=== PATIENT | female | born 1970 | race Caucasian/White ===

== ENCOUNTER 2017-11-17 11:52 | Emergency (ER) | END 2017-11-17 12:28 | disposition home or self-care (01) ==

== ENCOUNTER 2019-01-13 15:12 | Emergency (ER) | payer MEDICAID ==
[~2019-01-13] VITALS: Ht 154.9 cm; Wt 65.0 kg
[~2019-01-13 15:12] MED LIST: ALBU8.5H8 INH; BENZ-6 PO; D-ME473S2 PO; PRED20TA PO
[2019-01-13 15:19] VITALS: BP 141/88; PULSE 68; RESP 18; Ht 154.9 cm; Wt 65.0 kg
[2019-01-13] MEDS ORDERED: KETOROLAC 30 MG INJ IM STA (16:05)
[2019-01-13] MEDS ORDERED: LIDOCAINE 1%/EPI 30 ML INJ INJ STA (16:05)
[2019-01-13] MEDS ORDERED: DIPHTH/TET/ACEL PERTUSS (ADULT) 0.5 ML VIAL IM* ONE (16:30)
[2019-01-13] MEDS ORDERED: CEPH-443 PO (17:31)
[2019-01-13] MEDS ORDERED: ACET325T33 PO (17:31)
--- NOTE | 2019-01-13 17:44 | ERD ---
ER Documentation Chief Complaint Chief Complaint HEAD LAC S/P SLIP AND FALL WHILE CLEANING , NO K/O HPI 48-year-old female slipped and fell while cleaning last night. Patient denies any LOC. Patient is coming in for laceration on the right side of the occipital lobe of her scalp that is still bleeding. Laceration appears to be about 4 cm and is superficial. Patient states the pain is a 4 out of 10 and does not know when her last tetanus vaccination was. Patient denies any allergies to medication. Patient denies headache confusion blurred vision. Patient states she has no medical history and states that she is not allergic to any medication. ROS All systems reviewed and are negative except as per history of present illness. Medications Home Meds Active Scripts Acetaminophen* (Tylenol*) 325 Mg Tablet, 2 TAB PO Q6 PRN for PAIN AND OR ELEVATED TEMP, #20 TAB Prov:SOM PRADO PA-C 01/13/19 Cephalexin* (Keflex*) 500 Mg Capsule, 500 MG PO QID for 5 Days, CAP Prov:SOM PRADO PA-C 01/13/19 Benzonatate* (Tessalon Perle*) 100 Mg Capsule, 100 MG PO Q8H PRN for COUGH, #30 CAP Prov:COBY LUX PA-C 11/17/17 Dextromethorphan Hb-Promethazine Hcl* (Promethazine DM* Syrup) 473 Ml Syrup, 5 ML PO Q6 PRN for COUGH, #100 ML Prov:COBY LUX PA-C 11/17/17 Prednisone* (Prednisone*) 20 Mg Tab, 40 MG PO DAILY for 4 Days, TAB Prov:COBY LUX PA-C 11/17/17 Albuterol Sulfate* (Proair HFA*) 8.5 Gm Hfa.aer.ad, 2 PUFF INH Q4, #1 INHALER Prov:COBY LUX PA-C 11/17/17 Allergies Allergies: Coded Allergies: No Known Allergy (Unverified , 01/13/19) PMhx/Soc Medical and Surgical Hx: pt denies Surgical Hx Hx Respiratory Disorders: Yes (Asthma) Hx Alcohol Use: Yes (occassionally) Hx Substance Use: No Hx Tobacco Use: No Smoking Status: Never smoker FmHx Family History: No diabetes, No coronary disease, No other Physical Exam Vitals Vital Signs Date Temp Pulse Resp B/P (MAP) Pulse Ox O2 O2 Flow FiO2 Time Delivery Rate 01/13/19 97.9 68 18 141/88 98 15:19 (105) Physical Exam Const: Mild distress Head: 4 cm laceration to the posterior right side of the scalp Eyes: Normal Conjunctiva ENT: Normal External Ears, Nose and Mouth. Neck: Full range of motion. No meningismus. Resp: Clear to auscultation bilaterally Cardio: Regular rate and rhythm, no murmurs Results 24 hrs Laboratory Tests Test 01/13/19 16:21 POC Beta HCG, Qualitative NEGATIVE Current Medications Medications Dose Sig/Soren Start Time Status Last (Trade) Ordered Route PRN Stop Time Admin Dose Reason Admin Ketorolac 30 mg ONCE STAT 01/13/19 DC 01/13/19 Tromethamine IM 16:05 01/13/19 16:22 (Toradol) 16:07 Lidocaine/ 30 ml ONCE STAT 01/13/19 DC Epinephrine INJ 16:05 01/13/19 (Xylocaine 16:07 1%/ Epi (Pf)) Diphtheria/ 0.5 ml ONCE ONCE 01/13/19 DC 01/13/19 Tetanus/Acell IM* 16:30 01/13/19 16:22 Pertussis 16:31 (Adacel) Procedures/MDM ED course: Tdap Suture repair The patient was stable throughout the ED course. The patient and/or family informed of laboratory and diagnostic imaging results throughout the ED course. Procedures: Laceration Repair by me: Anesthesia: 1% lidocaine with epi Location: Posterior right-sided scalp Tendon/Joint/Nerves: No injury Foreign body: None detected after copious irrigation and exploration Technique: Simple Interrupted Sutures 40, total number sutures 4 Complexity: No subcutaneous sutures/mucosal repair/edge excision Post Closure Length: 4 cm Patient's bleeding was easily controlled in the department and there is no indication of anemia. No evidence of compartment syndrome, neurologic injury, vascular injury, open joint, tendon laceration, or foreign body. Patient is appropriate for outpatient follow up. 48 hour wound check. Scar minimization instructions given. Medications given in ER: Lidocaine with epi Tdap Patient tolerated medication well with no adverse reactions. Patient reported improvement in pain. Medical decision makin-year-old female presenting with head laceration that occurred last night. Patient states she did not lose consciousness that she fell while cleaning. She states she is coming in today because it still bleeding. Physical examination revealed a 4 cm laceration to the posterior right side of her scalp. The patient did not want me to cut her hair and I advised her that the hair follicles pose a risk for a bacterial infection. The patient was persistent on not having her haircut. The patient laceration was anesthetized with lidocaine with epi. The wound was thoroughly irrigated with normal saline. The patient's laceration was repaired in a sterile field. Suture size 40, technique simple interrupted, total number of sutures 4. The patient was offered Toradol for pain but refused. Patient stated that she did not want anything for pain. patient was advised that she needs to come back in 2 days for wound check. The patient was advised that the sutures need to come out in 7 to 10 days. Based on physical exam and history of presentation and the patient's mental status not being altered I do not think any need for CT imaging. At this time I have low suspicion for CVA, TIA, intracranial hemorrhage, meningitis, encephalitis, CO poisoning, temporal arteritis, benign intracranial hypertension, intracranial mass, glaucoma, preeclampsia, sinusitis, tension headache, migraine headache, cluster headache. Patient was being discharged with acetaminophen and Keflex. The patient's wound has been exposed for greater than 15 hours and the patient refused to allow me to cut her hair. I thought it was appropriate to give her Keflex to cover for any bacteria that may have been exposed into the wound. The patient's tetanus vaccination was updated in the ER patient had no further questions upon discharge and understands the follow-up instructions. Prescription for home: Keflex Acetaminophen Discharge: At this time, patient is stable for discharge and outpatient management. I have instructed the patient to follow-up with his\her primary care physician in 1 to 2 days. I have discussed with the patient the possibility of needing to see a specialist for further work-up and imaging studies if symptoms persist. I have instructed the patient to promptly return to the ER for any new or worsening sy mptoms including increased pain, fever, nausea, vomiting, weakness or LOC. The patient and\or family expressed understanding of and agreement with this plan. All questions were answered. Home care instructions were provided. Disclaimer: Inadvertent spelling and grammatical errors are likely due to EHR\dictation software use and do not reflect on the overall quality of patient care. Also, please note that the electronic time recorded on the note does not necessarily reflect the actual time of the patient encounter. Departure Diagnosis: Primary Impression: Laceration of head Encounter type: initial encounter Location of open wound of head: scalp Foreign body presence: without foreign body Qualified Codes: S01.01XA - Laceration without foreign body of scalp, initial encounter Condition: Stable Patient Instructions: Suture Care, Wound Check, Lac F/U (No Infection) Additional Instructions: Follow-up in 2 days for wound check. Follow-up in 7 to 10 days for suture removal. Return to ER if you develop pain fever or irritation to the site. SOM PRADO PA-C Jan 13, 2019 17:44
== END 2019-01-13 17:50 | disposition home or self-care (01) ==
LOC: FTE 15:12
DX: S01.01XA Laceration without foreign body of scalp, initial encounter (principal); J45.909 Unspecified asthma, uncomplicated; W01.0XXA Fall on same level from slipping, tripping and stumbling without subsequent striking against object, initial encounter; Y92.9 Unspecified place or not applicable; Z23 Encounter for immunization
CPT/HCPCS: 12002; 81025; 90471; 90715; 96372; J1885; Z7502; Z7610

== ENCOUNTER 2019-01-16 18:59 | Emergency (ER) | payer MEDICAID ==
[~2019-01-16] VITALS: Ht 154.9 cm; Wt 64.5 kg
[~2019-01-16 18:59] MED LIST changes: +ACET325T33 PO; +CEPH-443 PO
[2019-01-16 19:01] VITALS: BP 157/70; PULSE 46; RESP 18; Ht 154.9 cm; Wt 64.5 kg
--- NOTE | 2019-01-16 19:43 | ERD ---
ER Documentation Chief Complaint Chief Complaint WOUND CHECK ON SCALP. SUTURED 2 DAYS AGO. HPI 48-year-old female, previously healthy, presents to the emergency department for 48 hours wound check after a laceration repaired on the scalp. The patient denies headache, no blurred vision, no nausea or vomiting, no active bleeding. ROS All systems reviewed and are negative except as per history of present illness. Medications Home Meds Active Scripts Acetaminophen* (Tylenol*) 325 Mg Tablet, 2 TAB PO Q6 PRN for PAIN AND OR ELEVATED TEMP, #20 TAB Prov:SOM PRADO PA-C 01/13/19 Cephalexin* (Keflex*) 500 Mg Capsule, 500 MG PO QID for 5 Days, CAP Prov:SOM PRADO PA-C 01/13/19 Benzonatate* (Tessalon Perle*) 100 Mg Capsule, 100 MG PO Q8H PRN for COUGH, #30 CAP Prov:COBY LUX PA-C 11/17/17 Dextromethorphan Hb-Promethazine Hcl* (Promethazine DM* Syrup) 473 Ml Syrup, 5 ML PO Q6 PRN for COUGH, #100 ML Prov:COBY LUX PA-C 11/17/17 Prednisone* (Prednisone*) 20 Mg Tab, 40 MG PO DAILY for 4 Days, TAB Prov:COBY LUX PA-C 11/17/17 Albuterol Sulfate* (Proair HFA*) 8.5 Gm Hfa.aer.ad, 2 PUFF INH Q4, #1 INHALER Prov:COBY LUX PA-C 11/17/17 Allergies Allergies: Coded Allergies: No Known Allergy (Unverified , 01/13/19) PMhx/Soc Medical and Surgical Hx: pt denies Surgical Hx Hx Respiratory Disorders: Yes (Asthma) Hx Alcohol Use: Yes (occassionally) Hx Substance Use: No Hx Tobacco Use: No FmHx Family History: No diabetes, No coronary disease Physical Exam Vitals Vital Signs Date Temp Pulse Resp B/P (MAP) Pulse Ox O2 O2 Flow FiO2 Time Delivery Rate 01/16/19 97.9 46 18 157/70 97 19:01 (99) Physical Exam Const: No acute distress Head: 4 cm linear laceration on the scalp in the occipital area, stitches clean, dry and intact. Eyes: Normal Conjunctiva ENT: Normal External Ears, Nose and Mouth. Neck: Full range of motion. No meningismus. Resp: Clear to auscultation bilaterally Cardio: Regular rate and rhythm, no murmurs Abd: Soft, non tender, non distended. Normal bowel sounds Skin: No petechiae or rashes Back: No midline or flank tenderness Ext: No cyanosis, or edema Neur: Awake and alert Psych: Normal Mood and Affect Procedures/MDM Status post 1 laceration repair 2 days ago. Adequate pain control, no fever, no chills, good compliance with medications no side effects. The patient was evaluated for infection and neurovascular compromise. Patient is stable, with adequate healing process, okay to discharge home, medication adherence reinforced. some side effects of prescribed medications (headache, rash, nausea, vomiting, diarrhea, drowsiness, habituation, bleeding, hypertension, interactions with other medications) were reviewed. The patient was instructed to follow up with the primary care provider in the next 48h. If symptoms persist, worsen or new symptoms develop, then patient should return to the ED immediately. Instructions explained and given directly by me to the patient with acknowledgment and demonstrated understanding. Disclaimer: Inadvertent spelling and grammatical errors are likely due to EHR/dictation software use and do not reflect on the overall quality of patient care. Also, please note that the electronic time recorded on this note does not necessarily reflect the actual time of the patient encounter. Departure Diagnosis: Primary Impression: Encounter for wound re-check Condition: Stable Patient Instructions: Wound Check, Lac F/U (No Infection) Additional Instructions: Muchas rubia por [facility] para navas servicio. Esperamos que en navas visita a la jazmine de emergencia navas problema medico haya sido solucionado y que se sienta mucho mejor. Para estar seguros que navas mejoria sigue en proceso, le pedimos el favor de hacer pedro layton de seguimiento medico con navas doctor primario en los proximos 2-4 callahan. Lleve con usted estos documentos y las medicinas recetadas. Si fouzia sintomas empeoran, NO SE ESPERE, por favor regrese a jazmine de emergencia INMEDIATAMENTE. En hima que usted no tenga un mdico de atencin primaria: Llame al mdico o clnica comunitaria de referencia que aparece abajo sabra las horas de consultorio para hacer pedro layton para que le vean. CLINICAS: [facility] [phone] [address] [facility] [phone] [address] [facility] [phone] [address] [facility]. [facility] [phone] [address] [facility] [phone] [address] [facility]. [phone] REN Walton MD Jan 16, 2019 19:43
== END 2019-01-16 19:50 | disposition home or self-care (01) ==
LOC: FTE 18:59
DX: Z48.01 Encounter for change or removal of surgical wound dressing (principal); J45.909 Unspecified asthma, uncomplicated
CPT/HCPCS: 99281

== ENCOUNTER 2019-01-21 13:39 | Emergency (ER) | payer MEDICAID ==
[~2019-01-21] VITALS: Ht 154.9 cm; Wt 65.0 kg
[2019-01-21 13:46] VITALS: BP 133/60; PULSE 48; RESP 16; Ht 154.9 cm; Wt 65.0 kg
--- NOTE | 2019-01-21 14:12 | ERD ---
ER Documentation Chief Complaint Chief Complaint STAPLE REMOVAL NEEDED HPI 48-year-old female, presents to the emergency department for stitches removal of the scalp placed 8 days ago. The patient refers feeling better, no active bleeding, no signs of infection. ROS All systems reviewed and are negative except as per history of present illness. Medications Home Meds Active Scripts Acetaminophen* (Tylenol*) 325 Mg Tablet, 2 TAB PO Q6 PRN for PAIN AND OR ELEVATED TEMP, #20 TAB Prov:SOM PRADO PA-C 01/13/19 Cephalexin* (Keflex*) 500 Mg Capsule, 500 MG PO QID for 5 Days, CAP Prov:SOM PRADO PA-C 01/13/19 Benzonatate* (Tessalon Perle*) 100 Mg Capsule, 100 MG PO Q8H PRN for COUGH, #30 CAP Prov:COBY LUX PA-C 11/17/17 Dextromethorphan Hb-Promethazine Hcl* (Promethazine DM* Syrup) 473 Ml Syrup, 5 ML PO Q6 PRN for COUGH, #100 ML Prov:COBY LUX PA-C 11/17/17 Prednisone* (Prednisone*) 20 Mg Tab, 40 MG PO DAILY for 4 Days, TAB Prov:COBY LUX PA-C 11/17/17 Albuterol Sulfate* (Proair HFA*) 8.5 Gm Hfa.aer.ad, 2 PUFF INH Q4, #1 INHALER Prov:COBY LUX PA-C 11/17/17 Allergies Allergies: Coded Allergies: No Known Allergy (Unverified , 01/13/19) PMhx/Soc Hx Respiratory Disorders: Yes (Asthma) Hx Alcohol Use: Yes (occassionally) Hx Substance Use: No Hx Tobacco Use: No FmHx Family History: No diabetes, No coronary disease Physical Exam Vitals Vital Signs Date Temp Pulse Resp B/P (MAP) Pulse Ox O2 O2 Flow FiO2 Time Delivery Rate 01/21/19 98.0 48 16 133/60 97 13:46 (84) Physical Exam Const: No acute distress Head: 3 cm linear laceration of the skull, with [address], clean, dry and intact. Eyes: Normal Conjunctiva ENT: Normal External Ears, Nose and Mouth. Neck: Full range of motion. No meningismus. Resp: Clear to auscultation bilaterally Cardio: Regular rate and rhythm, no murmurs Abd: Soft, non tender, non distended. Normal bowel sounds Skin: No petechiae or rashes Back: No midline or flank tenderness Ext: No cyanosis, or edema Neur: Awake and alert Psych: Normal Mood and Affect Procedures/MDM Status post laceration repaired 8 days ago. Adequate pain control, no fever, no chills. The patient was evaluated for infection and neurovascular compromise. The wound was clean and stitches removed without complications. Patient is stab le, with adequate healing process, okay to discharge home. The patient was instructed to follow up with the primary care provider in the next 48h. If symptoms persist, worsen or new symptoms develop, then patient should return to the ED immediately. Instructions explained and given directly by me to the patient with acknowledgment and demonstrated understanding. Disclaimer: Inadvertent spelling and grammatical errors are likely due to EHR/dictation software use and do not reflect on the overall quality of patient care. Also, please note that the electronic time recorded on this note does not necessarily reflect the actual time of the patient encounter. Departure Diagnosis: Primary Impression: Encounter for removal of sutures Condition: Stable Patient Instructions: Suture Removal, No Complication (Child) Additional Instructions: Muchas rubia por [facility] para navas servicio. Esperamos que en navas visita a la jazmine de emergencia navas problema medico haya sido solucionado y que se sienta mucho mejor. Para estar seguros que navas mejoria sigue en proceso, le pedimos el favor de hacer pedro layton de seguimiento medico con navas doctor primario en los proximos 2-4 callahan. Lleve con usted estos documentos y las medicinas recetadas. Si fouzia sintomas empeoran, NO SE ESPERE, por favor regrese a jazmine de emergencia INMEDIATAMENTE. En hima que usted no tenga un mdico de atencin primaria: Llame al mdico o clnica comunitaria de referencia que aparece abajo sabra las horas de consultorio para hacer pedro layton para que le vean. CLINICAS: [facility] [phone] [address] [facility] [phone] [address] [facility] [phone] [address] [facility] [phone] [place] [id number] [phone] [facility]. [phone] REN CHENG MD Jan 21, 2019 14:12
== END 2019-01-21 14:48 | disposition left against medical advice (07) ==
LOC: FTE 13:39
DX: Z48.02 Encounter for removal of sutures (principal); J45.909 Unspecified asthma, uncomplicated
CPT/HCPCS: 99281